=== PATIENT | male | born 1980 | race Caucasian/White ===

== ENCOUNTER 2017-12-28 09:28 | Emergency (ER) | payer SELFPAY ==
[2017-12-28] MEDS ORDERED: SMZ./TMP. 800/160 MG TABLET ONE (10:04)
--- NOTE | 2017-12-28 10:13 | EDPHYS ---
Physician Documentation [facility] Name: Сергей Hall Age: 37 yrs Sex: Male : 1980 Arrival Date: 12/28/2017 Time: 09:30 Bed 14 Private MD: ED Physician Steve Thomas HPI: 12/28 10:08 This 37 yrs old Male presents to ER via Ambulatory with complaints of Rash. kb 10:08 The patient's rash thought to be caused by an unknown cause. The rash is located on the kb left lower back. The rash can be described as erythematous, raised. Onset: The symptoms/episode began/occurred 3 day(s) ago. Associated signs and symptoms: Pertinent positives: Pain Pertinent negatives: burning sensation, difficulty breathing, fever, itching, nausea, swelling of lips, swelling of throat, swelling of tongue, vomiting, wheezing. Severity of symptoms: At their worst the symptoms were mild in the emergency department the symptoms are unchanged. The patient has not experienced similar symptoms in the past. The patient has not recently seen a physician. Pt states he developed a rash to lower back that starts to go down his leg. Worried about shingles being the cause. . Historical: - Allergies: 09:39 PENICILLINS; lk1 - PMHx: 09:39 Diabetes - IDDM; Seizures; lung collapsed 2005; lk1 - PSHx: 09:39 arm surg; lk1 - Immunization history:: Adult Immunizations up to date. - Social history:: Smoking status: Patient uses tobacco products, smokes three packs cigarettes per day. ROS: 10:05 Constitutional: Negative for fever, chills, and weight loss, Cardiovascular: Negative kb for chest pain, palpitations, and edema, Respiratory: Negative for shortness of breath, cough, wheezing, and pleuritic chest pain, Abdomen/GI: Negative for abdominal pain, nausea, vomiting, diarrhea, and constipation, Back: Negative for injury and pain, : Negative for injury, bleeding, discharge, and swelling, MS/Extremity: Negative for injury and deformity, Neuro: Negative for headache, weakness, numbness, tingling, and seizure. 10:05 Skin: Positive for erythema, rash, of the left lower back. Exam: 10:05 Constitutional: This is a well developed, well nourished patient who is awake, alert, kb and in no acute distress. Head/Face: Normocephalic, atraumatic. Chest/axilla: Normal chest wall appearance and motion. Nontender with no deformity. No lesions are appreciated. Cardiovascular: Regular rate and rhythm with a normal S1 and S2. No gallops, murmurs, or rubs. Normal PMI, no JVD. No pulse deficits. Respiratory: Lungs have equal breath sounds bilaterally, clear to auscultation and percussion. No rales, rhonchi or wheezes noted. No increased work of breathing, no retractions or nasal flaring. Abdomen/GI: Soft, non-tender, with normal bowel sounds. No distension or tympany. No guarding or rebound. No evidence of tenderness throughout. Back: No spinal tenderness. No costovertebral tenderness. Full range of motion. MS/ Extremity: Pulses equal, no cyanosis. Neurovascular intact. Full, normal range of motion. Neuro: Awake and alert, GCS 15, oriented to person, place, time, and situation. Cranial nerves II-XII grossly intact. Motor strength 5/5 in all extremities. Sensory grossly intact. Cerebellar exam normal. Normal gait. 10:05 Skin: lesion(s), noted, and can be described as erythematous, raised, looks like bug bites, located on the left lower back. Vital Signs: 09:39 BP 133 / 91; Pulse 87; Resp 15; Temp 97.9(TE); Pulse Ox 99% on R/A; Weight 79.38 kg lk1 (R); Height 5 ft. 5 in. (165.10 cm) (R); Pain 7/10; 09:39 Body Mass Index 29.12 (79.38 kg, 165.10 cm) lk1 MDM: 09:42 Patient medically screened. kb 10:08 Data reviewed: vital signs, nurses notes. Data interpreted: Pulse oximetry: on room air kb is 99 %. Interpretation: normal. Counseling: I had a detailed discussion with the patient and/or guardian regarding: the historical points, exam findings, and any diagnostic results supporting the discharge/admit diagnosis, the need for outpatient follow up, a family practitioner, to return to the emergency department if symptoms worsen or persist or if there are any questions or concerns that arise at home. 10:10 ED course: Lesions appear to be bug bites with mild surrounding erythema. No vesicular kb lesions noted. Does not appear to be shingles. Administered Medications: 10:05 Drug: Bactrim (160 mg-800 mg (DS) 1 tablet Route: PO; jl7 10:30 Follow up: Response: No adverse reaction jl7 Disposition: 11:02 Co-signature as Attending Physician, Steve Thomas MD. rn Disposition: 12/28/17 10:13 Discharged to Home. Impression: Local infection of the skin and subcutaneous tissue, unspecified. - Condition is Stable. - Discharge Instructions: Insect Bite, [id number], Abscess, [id number]. - Prescriptions for Bactrim DS 800- 160 mg Oral Tablet - take 1 tablet by ORAL route every 12 hours for 7 days; 14 tablet. - Medication Reconciliation Form, Thank You Letter, Antibiotic Education, Prescription Opioid Use form. - Follow up: Emergency Department; When: As needed; Reason: Worsening of condition. Follow up: Private Physician; When: 2 - 3 days; Reason: Recheck today's complaints, Continuance of care, Re-evaluation by your physician. Signatures: Bernice Singh, TRUCK DRIVER SALESPERSON-C TRUCK DRIVER SALESPERSON-CkSteve St MD MD rn Kluge, Leah, RN RN lk1 Carly Elam RN RN jl7 Corrections: (The following items were deleted from the chart) 10:30 10:13 12/28/2017 10:13 Discharged to Home. Impression: Local infection of the skin and jl7 subcutaneous tissue, unspecified. Condition is Stable. Forms are Medication Reconciliation Form, Thank You Letter, Antibiotic Education, Prescription Opioid Use. Follow up: Emergency Department; When: As needed; Reason: Worsening of condition. Follow up: Private Physician; When: 2 - 3 days; Reason: Recheck today's complaints, Continuance of care, Re-evaluation by your physician. kb
--- NOTE | 2017-12-28 10:13 | ER ---
Nurse's Notes [facility] Name: Сергей Hall Age: 37 yrs Sex: Male : 1980 Arrival Date: 12/28/2017 Time: 09:30 Bed 14 Private MD: Diagnosis: Local infection of the skin and subcutaneous tissue, unspecified Presentation: 12/28 09:37 Presenting complaint: Patient states: "I have a rash on my back and down my butt and lk1 inner thigh. My grandma said I have shingles.". Transition of care: patient was not received from another setting of care. Onset of symptoms was December 25, 2017. Risk Assessment: Do you want to hurt yourself or someone else? Patient reports no desire to harm self or others. Initial Sepsis Screen: Does the patient meet any 2 criteria? No. Patient's initial sepsis screen is negative. Does the patient have a suspected source of infection? No. Patient's initial sepsis screen is negative. Care prior to arrival: None. 09:37 Method Of Arrival: Ambulatory lk1 09:37 Acuity: ZANA 5 lk1 Triage Assessment: 09:39 General: Appears in no apparent distress. Behavior is calm, cooperative, appropriate lk1 for age. Pain: Complains of pain in left flank Pain currently is 7 out of 10 on a pain scale. Historical: - Allergies: 09:39 PENICILLINS; lk1 - PMHx: 09:39 Diabetes - IDDM; Seizures; lung collapsed 2005; lk1 - PSHx: 09:39 arm surg; lk1 - Immunization history:: Adult Immunizations up to date. - Social history:: Smoking status: Patient uses tobacco products, smokes three packs cigarettes per day. Screenin:50 Abuse screen: Denies threats or abuse. Denies injuries from another. Nutritional jl7 screening: No deficits noted. Tuberculosis screening: No symptoms or risk factors identified. Fall Risk None identified. Assessment: 09:50 General: Appears in no apparent distress. Pain: Complains of pain in left lower back jl7 Pain does not radiate. Neuro: Level of Consciousness is awake, alert, obeys commands, Oriented to person, place, time, situation. Cardiovascular: Patient's skin is warm and dry. Respiratory: Airway is patent Respiratory effort is even, unlabored, Respiratory pattern is regular, symmetrical. Derm: insect bites noted to left lower back. Vital Signs: 09:39 BP 133 / 91; Pulse 87; Resp 15; Temp 97.9(TE); Pulse Ox 99% on R/A; Weight 79.38 kg lk1 (R); Height 5 ft. 5 in. (165.10 cm) (R); Pain 7/10; 09:39 Body Mass Index 29.12 (79.38 kg, 165.10 cm) lk1 ED Course: 09:30 Patient arrived in ED. rg4 09:38 Triage completed. lk1 09:41 Arm band placed on left wrist. lk1 09:42 [facility]C [facility]. kb 09:42 Steve Thomas MD is Attending Physician. kb 09:44 Carly Elam, RN is Primary Nurse. jl7 09:50 Patient has correct armband on for positive identification. Bed in low position. Call jl7 light in reach. Side rails up X 1. 09:50 No provider procedures requiring assistance completed. Patient did not have IV access jl7 during this emergency room visit. Administered Medications: 10:05 Drug: Bactrim (160 mg-800 mg (DS) 1 tablet Route: PO; jl7 10:30 Follow up: Response: No adverse reaction jl7 Outcome: 10:13 Discharge ordered by . kb 10:29 Discharged to home ambulatory. jl7 10:29 Condition: stable 10:29 Discharge instructions given to patient, Instructed on discharge instructions, follow up and referral plans. medication usage, Demonstrated understanding of instructions, follow-up care, medications, Prescriptions given X 1. 10:30 Patient left the ED. jl7 Signatures: Bernice Singh FNP-C FNP-Radha Iglesias, RN RN lk1 Shirley Chowdhury rg4 Carly Elam, NEVAEH RN jl7
== END 2017-12-28 10:30 | disposition home or self-care (01) ==
LOC: ER 09:28
DX: L08.9 Local infection of the skin and subcutaneous tissue, unspecified (principal); F17.210 Nicotine dependence, cigarettes, uncomplicated; E11.9 Type 2 diabetes mellitus without complications; Z88.0 Allergy status to penicillin
CPT/HCPCS: 99283

== ENCOUNTER 2017-12-28 17:18 | Emergency (ER) | payer SELFPAY ==
--- NOTE | 2017-12-28 18:40 | EDPHYS ---
Physician Documentation [facility] Name: Сергей Hall Age: 37 yrs Sex: Male : 1980 Arrival Date: 12/28/2017 Time: 17:20 Bed 18 Private MD: ED Physician Joe Dougherty HPI: 12/28 18:37 This 37 yrs old Male presents to ER via Ambulatory with complaints of gs Vomiting. 18:37 Onset: The symptoms/episode began/occurred acutely, just prior to arrival. Possible gs causes: antibiotics, bactrim tab on empty stomach. The symptoms are aggravated by nothing. The symptoms are alleviated by nothing. Severity of symptoms: At their worst the symptoms were moderate in the emergency department the symptoms have resolved. The patient has not experienced similar symptoms in the past. Historical: - Allergies: 17:47 PENICILLINS; lk1 - PMHx: 17:47 Diabetes - IDDM; lung collapsed 2005; Seizures; lk1 - PSHx: 17:48 arm surg; lk1 - Immunization history:: Adult Immunizations up to date. - Social history:: Smoking status: Patient/guardian denies using tobacco. ROS: 18:37 All other systems are negative. gs Exam: 18:37 Head/Face: Normocephalic, atraumatic. Eyes: Pupils equal round and reactive to light, gs extra-ocular motions intact. Lids and lashes normal. Conjunctiva and sclera are non-icteric and not injected. Cornea within normal limits. Periorbital areas with no swelling, redness, or edema. ENT: Nares patent. No nasal discharge, no septal abnormalities noted. Tympanic membranes are normal and external auditory canals are clear. Oropharynx with no redness, swelling, or masses, exudates, or evidence of obstruction, uvula midline. Mucous membranes moist. Neck: Trachea midline, no thyromegaly or masses palpated, and no cervical lymphadenopathy. Supple, full range of motion without nuchal rigidity, or vertebral point tenderness. No Meningismus. Chest/axilla: Normal chest wall appearance and motion. Nontender with no deformity. No lesions are appreciated. Cardiovascular: Regular rate and rhythm with a normal S1 and S2. No gallops, murmurs, or rubs. Normal PMI, no JVD. No pulse deficits. Respiratory: Lungs have equal breath sounds bilaterally, clear to auscultation and percussion. No rales, rhonchi or wheezes noted. No increased work of breathing, no retractions or nasal flaring. Abdomen/GI: Soft, non-tender, with normal bowel sounds. No distension or tympany. No guarding or rebound. No evidence of tenderness throughout. Back: No spinal tenderness. No costovertebral tenderness. Full range of motion. MS/ Extremity: Pulses equal, no cyanosis. Neurovascular intact. Full, normal range of motion. Neuro: Awake and alert, GCS 15, oriented to person, place, time, and situation. Cranial nerves II-XII grossly intact. Motor strength 5/5 in all extremities. Sensory grossly intact. Cerebellar exam normal. Normal gait. 18:37 Constitutional: The patient appears alert, awake. 18:37 Skin: rash a moderate rash is noted, rash can be described as erythematous, excoriated, raised, on the left low back. Vital Signs: 17:48 BP 128 / 95; Pulse 95; Resp 16; Temp 98.7(O); Pulse Ox 99% on R/A; Weight 79.38 kg (R); lk1 Height 5 ft. 5 in. (165.10 cm) (R); Pain 4/10; 17:48 Body Mass Index 29.12 (79.38 kg, 165.10 cm) lk1 MDM: 18:35 Patient medically screened. 18:37 Differential diagnosis: gastritis. Data reviewed: vital signs, nurses notes, old medical records. Administered Medications: No medications were administered Disposition: 12/28/17 18:39 Discharged to Home. Impression: Vomiting, Dermatitis, unspecified. - Condition is Stable. - Discharge Instructions: Nausea and Vomiting, Rash. - Prescriptions for Clindamycin HCl 150 mg Oral Capsule - take 1 capsule by ORAL route every 8 hours for 7 days; 21 capsule. Triamcinolone Acetonide 0.5 % Topical Cream - apply 1 application by TOPICAL route 2 times per day As needed; 30 gram. - Medication Reconciliation Form, Thank You Letter, Antibiotic Education, Prescription Opioid Use form. - Follow up: Private Physician; When: 2 - 3 days; Reason: Re-evaluation by your physician. Signatures: Emre Wadsworth LVN LVN em Kluge, Leah, RN RN lk1 Joe Dougherty MD MD Corrections: (The following items were deleted from the chart) 18:49 18:39 12/28/2017 18:39 Discharged to Home. Impression: Vomiting; Dermatitis, em unspecified. Condition is Stable. Forms are Medication Reconciliation Form, Thank You Letter, Antibiotic Education, Prescription Opioid Use. Follow up: Private Physician; When: 2 - 3 days; Reason: Re-evaluation by your physician. bessy
--- NOTE | 2017-12-28 18:40 | ER ---
Nurse's Notes [facility] Name: Сергей Hall Age: 37 yrs Sex: Male : 1980 Arrival Date: 12/28/2017 Time: 17:20 Bed 18 Private MD: Diagnosis: Vomiting;Dermatitis, unspecified Presentation: 12/28 17:45 Presenting complaint: Patient states: "I keep throwing up I think from the bactrim I lk1 took. I keep throwing up chunks of stuff that has worms in it. It is probably from all the raw meat I eat.". Transition of care: patient was not received from another setting of care. Onset of symptoms was December 28, 2017 at 14:30. Risk Assessment: Do you want to hurt yourself or someone else? Patient reports no desire to harm self or others. Initial Sepsis Screen: Does the patient meet any 2 criteria? No. Patient's initial sepsis screen is negative. Does the patient have a suspected source of infection? No. Patient's initial sepsis screen is negative. Care prior to arrival: None. 17:45 Method Of Arrival: Ambulatory lk1 17:45 Acuity: ZANA 3 lk1 Triage Assessment: 18:49 GI: Reports. em Historical: - Allergies: 17:47 PENICILLINS; lk1 - PMHx: 17:47 Diabetes - IDDM; lung collapsed 2005; Seizures; lk1 - PSHx: 17:48 arm surg; lk1 - Immunization history:: Adult Immunizations up to date. - Social history:: Smoking status: Patient/guardian denies using tobacco. Screenin:32 Abuse screen: Denies threats or abuse. Nutritional screening: No deficits noted. em Tuberculosis screening: No symptoms or risk factors identified. Fall Risk None identified. Assessment: 18:00 General: Appears in no apparent distress. comfortable, Behavior is calm, cooperative, em Reports vomiting worms after taking the Bactrim. Pain: Complains of pain in left low back. Neuro: Level of Consciousness is awake, alert, Oriented to person, place, time, situation. Cardiovascular: Capillary refill < 3 seconds Patient's skin is warm and dry. Respiratory: Airway is patent Respiratory effort is even, unlabored, Respiratory pattern is regular, symmetrical. GI: Abdomen is flat, Bowel sounds present X 4 quads. : No signs and/or symptoms were reported regarding the genitourinary system. EENT: No signs and/or symptoms were reported regarding the EENT system. Derm: Rash noted that is on left low back. Musculoskeletal: Range of motion: intact in all extremities. 18:44 Reassessment: I agree with above assessment by Emre Wadsworth LVN. iw Vital Signs: 17:48 BP 128 / 95; Pulse 95; Resp 16; Temp 98.7(O); Pulse Ox 99% on R/A; Weight 79.38 kg (R); lk1 Height 5 ft. 5 in. (165.10 cm) (R); Pain 4/10; 17:48 Body Mass Index 29.12 (79.38 kg, 165.10 cm) lk1 ED Course: 17:20 Patient arrived in ED. mr 17:47 Triage completed. lk1 17:50 Arm band placed on left wrist. lk1 18:05 Emre Wadsworth LVN is Primary Nurse. em 18:07 Joe Dougherty MD is Attending Physician. gs 18:32 Patient has correct armband on for positive identification. Bed in low position. Call em light in reach. 18:32 No provider procedures requiring assistance completed. Patient did not have IV access em during this emergency room visit. Administered Medications: No medications were administered Outcome: 18:39 Discharge ordered by . gs 18:49 Discharged to home ambulatory. em 18:49 Condition: good 18:49 Discharge instructions given to patient, Instructed on discharge instructions, follow up and referral plans. medication usage, Demonstrated understanding of instructions, follow-up care, medications, Prescriptions given X 2. 18:49 Patient left the ED. em Signatures: Jing Stephen WadsworthEmre LVN RECEIVING CHECKER em Naomi Branham, NEVAEH HERRING Radha Angelo RN RN lk1 Joe Dougherty MD MD
== END 2017-12-28 18:49 | disposition home or self-care (01) ==
LOC: ER 17:18
DX: L30.9 Dermatitis, unspecified (principal); Z88.0 Allergy status to penicillin
CPT/HCPCS: 99282